=== PATIENT | male | born 1980 | race Caucasian/White ===

== ENCOUNTER 2019-06-01 17:46 | Emergency (ER) | payer OTHER ==
[~2019-06-01] VITALS: Ht 165.1 cm; Wt 108.9 kg
[2019-06-01 18:05] LABS: BASO # 0.1 x10^3/uL (0.0-0.2); BASO % 1 % (0-3); EOS % 0 % (0-3); HEMATOCRIT 43.6 % (39.0-53.0); HEMOGLOBIN 14.5 g/dL (13.0-17.5); LYMPH # 3.5 x10^3/uL (1.0-4.8); LYMPH % 30 % (24-48); MEAN CORPUSCULAR HEMOGLOBIN 28 pg (25-35); MEAN CORPUSCULAR HGB CONC 33 g/dL (31-37); MEAN CORPUSCULAR VOLUME 84 fL (79-100); MONO # 0.7 x10^3/uL (0.0-1.1); MONO % 6 % (0-9); NEUT # 7.4 x10^3/uL (1.8-7.7); NEUT % 64 % (31-73); PLATELET COUNT 282 x10^3/uL (140-400); RED BLOOD COUNT 5.17 x10^6/uL (4.30-5.70); RED CELL DISTRIBUTION WIDTH 13.3 % (11.5-14.5); WHITE BLOOD COUNT 11.7 x10^3/uL (4.0-11.0)
--- NOTE | 2019-06-01 18:07 | PHYS DOC ---
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 Patient indicates that he was not actually trying to kill himself. Patient rates pain at an 8 out of 10. EMS reports that upon their arrival, patient had pulsatile flow from wounds and a tourniquet was placed. Patient denies loss of sensation distal to wound.[] (VIRGIL MELENDEZ Jr. DO) Review of Systems Review of Systems Constitutional: Denies fever or chills [] Respiratory: Denies cough or shortness of breath [] Cardiovascular: No additional information not addressed in HPI [] Musculoskeletal: Right arm pain [] Integument: Positive laceration to left antecubital space.[] Neurologic: Denies headache, focal weakness or sensory changes [] All other systems were reviewed and found to be within normal limits, except as documented in this note. (VIRGIL MELENDEZ Jr. DO) Current Medications Current Medications Current Medications Medications (Trade) Dose Ordered Sig/Adam Start Time Stop Time Status Last Admin Dose Admin Diphtheria/ Tetanus/Acell Pertussis (Boostrix) 0.5 ml ONCE ONCE 06/01/19 18:30 06/01/19 18:31 DC 06/01/19 18:24 0.5 ML Lidocaine/ Epinephrine (LIDOCAINE 1%-EPI 1:100,000 Multi-Dose) 20 ml 1X ONCE 06/01/19 18:30 06/01/19 18:31 DC 06/01/19 18:25 20 ML (JOVANNI FAJARDO APRN) Allergies Allergies Allergies Coded Allergies Type Severity Reaction Last Updated Verified Penicillins Allergy Unknown 06/01/19 Yes erythromycin base Allergy Unknown 06/01/19 Yes (JOVANNI FAJARDO APRN) Physical Exam Physical Exam Constitutional: Well developed, well nourished, no acute distress, non-toxic appearance. [] HENT: Normocephalic, atraumatic, bilateral external ears normal, oropharynx moist, no oral exudates, nose normal. [] Eyes: PERRLA, EOMI, conjunctiva normal, no discharge. [] Neck: Normal range of motion, no tenderness, supple. [] Cardiovascular: Regular rate and rhythm[] Lungs & Thorax: Bilateral breath sounds clear to auscultation [] Abdomen: Bowel sounds normal, soft, no tenderness. [] Skin: There is a 1.5 cm laceration noted to the antecubital space, midline, lateral to the brachial artery pulse. [] Extremities: Laceration as noted above. [] Neurologic: Alert and oriented X 3, no focal deficits noted. [] (VIRGIL MELENDEZ Jr. DO) Current Patient Data Vital Signs Vital Signs Date Time Temp Pulse Resp B/P (MAP) Pulse Ox O2 Delivery O2 Flow Rate FiO2 06/01/19 17:46 98.2 91 16 144/74 (97) 97 Room Air 98.2 (JOVANNI FAJARDO FAN BLADE ALIGNER) Lab Values Laboratory Tests Test 06/01/19 17:58 White Blood Count 11.7 x10^3/uL (4.0-11.0) H Red Blood Count 5.17 x10^6/uL (4.30-5.70) Hemoglobin 14.5 g/dL (13.0-17.5) Hematocrit 43.6 % (39.0-53.0) Mean Corpuscular Volume 84 fL (79-100) Mean Corpuscular Hemoglobin 28 pg (25-35) Mean Corpuscular Hemoglobin Concent 33 g/dL (31-37) Red Cell Distribution Width 13.3 % (11.5-14.5) Platelet Count 282 x10^3/uL (140-400) Neutrophils (%) (Auto) 64 % (31-73) Lymphocytes (%) (Auto) 30 % (24-48) Monocytes (%) (Auto) 6 % (0-9) Eosinophils (%) (Auto) 0 % (0-3) Basophils (%) (Auto) 1 % (0-3) Neutrophils # (Auto) 7.4 x10^3/uL (1.8-7.7) Lymphocytes # (Auto) 3.5 x10^3/uL (1.0-4.8) Monocytes # (Auto) 0.7 x10^3/uL (0.0-1.1) Eosinophils # (Auto) 0.0 x10^3/uL (0.0-0.7) Basophils # (Auto) 0.1 x10^3/uL (0.0-0.2) Sodium Level 141 mmol/L (136-145) Potassium Level 3.9 mmol/L (3.5-5.1) Chloride Level 105 mmol/L (98-107) Carbon Dioxide Level 26 mmol/L (21-32) Anion Gap 10 (6-14) Blood Urea Nitrogen 14 mg/dL (8-26) Creatinine 0.9 mg/dL (0.7-1.3) Estimated GFR (Cockcroft-Gault) 95.5 BUN/Creatinine Ratio 16 (6-20) Glucose Level 170 mg/dL (70-99) H Calcium Level 8.9 mg/dL (8.5-10.1) Total Bilirubin 0.6 mg/dL (0.2-1.0) Aspartate Amino Transferase (AST) 21 U/L (15-37) Alanine Aminotransferase (ALT) 27 U/L (16-63) Alkaline Phosphatase 61 U/L (46-116) Total Protein 7.6 g/dL (6.4-8.2) Albumin 3.6 g/dL (3.4-5.0) Albumin/Globulin Ratio 0.9 (1.0-1.7) L Ethyl Alcohol Level < 10 mg/dL (0-10) Laboratory Tests 06/01/19 17:58 Laboratory Tests 06/01/19 17:58 (JOVANNI FAJARDO APRN) Lab Values Laboratory Tests Test 06/01/19 17:58 White Blood Count 11.7 x10^3/uL (4.0-11.0) H Red Blood Count 5.17 x10^6/uL (4.30-5.70) Hemoglobin 14.5 g/dL (13.0-17.5) Hematocrit 43.6 % (39.0-53.0) Mean Corpuscular Volume 84 fL (79-100) Mean Corpuscular Hemoglobin 28 pg (25-35) Mean Corpuscular Hemoglobin Concent 33 g/dL (31-37) Red Cell Distribution Width 13.3 % (11.5-14.5) Platelet Count 282 x10^3/uL (140-400) Neutrophils (%) (Auto) 64 % (31-73) Lymphocytes (%) (Auto) 30 % (24-48) Monocytes (%) (Auto) 6 % (0-9) Eosinophils (%) (Auto) 0 % (0-3) Basophils (%) (Auto) 1 % (0-3) Neutrophils # (Auto) 7.4 x10^3/uL (1.8-7.7) Lymphocytes # (Auto) 3.5 x10^3/uL (1.0-4.8) Monocytes # (Auto) 0.7 x10^3/uL (0.0-1.1) Eosinophils # (Auto) 0.0 x10^3/uL (0.0-0.7) Basophils # (Auto) 0.1 x10^3/uL (0.0-0.2) Laboratory Tests 06/01/19 17:58 (VIRGIL MELENDEZ Jr., DO) EKG EKG [] (VIRGIL MELENDEZ Jr., DO) Radiology/Procedures Radiology/Procedures [] (VIRGIL MELENDEZ Jr., DO) Radiology/Procedures Laceration Repair by oh: Anesthesia: 1% lidocaine locally with 1% epi Location: RAC Tendon/Joint/Nerves: No injury Foreign body: None detected after copious irrigation and exploration Technique: 5 Simple Interrupted Sutures with 4-0 Ethilon, and Complexity: 1 running suture with 3 throws using 2-0 chromic gut for internal subcutaneous sutures Post Closure Length: 3 cm Patient's bleeding was easily controlled in the department and there is no indication of anemia. No evidence of compartment syndrome, neurologic injury, vascular injury, open joint, tendon laceration, or foreign body. Patient is appropriate for outpatient follow up. (JOVANNI FAJARDO APRN) Course & Med Decision Making Course & Med Decision Making Pertinent Labs and Imaging studies reviewed. (See chart for details) Tourniquet removed and rebleeding did occur; however, after approximately 10 minutes with direct pressure as held by Willis Fajardo, bleeding has stopped. I did discuss the case with Dr. Ball, on-call for vascular surgery, and he does not feel that this patient needs any vascular studies at this time. Nurse practitioner will be performing laceration repair. Patient has also been signed out to oncoming ER physician, Dr. Flowers. (VIRGIL MELENDEZ Jr., DO) Course & Med Decision Making Patient care transferred to [place] at 1800. Laceration was repaired by nurse practitioner without problem. Patient denies suicidal or homicidal ideation. Patient was evaluated by PAT team staff without having criteria for inpatient treatment for suicidal attempt. Patient was discharged to police custody. (CLARIBEL FLOWERS MD) Dragon Disclaimer Dragon Disclaimer This electronic medical record was generated, in whole or in part, using a voice recognition dictation system. (VIRGIL MELENDEZ Jr., DO) Departure Departure Impression: Primary Impression: Intentional self-harm by knife, initial encounter Additional Impression: Laceration of right forearm Disposition: HOME, SELF-CARE (police custody at 1947) Condition: IMPROVED Patient Instructions: Laceration Care, Adult, Suicidal Feelings, How to Help Yourself, Sutured Wound Care Additional Instructions: Keep wound clean and dry Follow-up with your primary care physician in 2-3 days Return to ER if not getting better Suture removal in 7-10 days Problem Qualifiers Additional Impression: Laceration of right forearm Encounter type: subsequent encounter Qualified Codes: S51.811D - Laceration without foreign body of right forearm, subsequent encounter VIRGIL MELENDEZ Jr., DO Jun 01, 2019 18:07 JOVANNI FAJARDO APRN Jun 01, 2019 18:42 CLARIBEL FLOWERS MD Jun 01, 2019 19:50
[2019-06-01 18:14] LABS: CALCIUM 8.9 mg/dL (8.5-10.1); CREATININE 0.9 mg/dL (0.7-1.3); GFR 95.5; POTASSIUM 3.9 mmol/L (3.5-5.1)
[2019-06-01 18:20] LABS: ALBUMIN 3.6 g/dL (3.4-5.0); ALBUMIN/GLOBULIN RATIO 0.9 (1.0-1.7); TOTAL BILIRUBIN 0.6 mg/dL (0.2-1.0); TOTAL PROTEIN 7.6 g/dL (6.4-8.2)
[2019-06-01] MEDS ORDERED: LIDOCAINE 1%/EPI 1:100,000 20 ML VIAL. SQ ONE (18:30)
[2019-06-01] MEDS ORDERED: DIPHTH,PERTUSS(ACELL),TET TOX 0.5 ML DISP.SYRIN. VAX IM ONE (18:30)
[2019-06-01] MEDS ORDERED: ACETAMINOPHEN 500 MG TABLET PO ONE (20:00)
[2019-06-01 20:15] VITALS: BP 152/95
== END 2019-06-01 20:21 | disposition home or self-care (01) ==
LOC: ER 17:46
DX: S51.811A Laceration without foreign body of right forearm, initial encounter (principal); X78.1XXA Intentional self-harm by knife, initial encounter; Y93.89 Activity, other specified; Y92.89 Other specified places as the place of occurrence of the external cause; Y99.8 Other external cause status
CPT/HCPCS: 12002; 36415; 80053; 85025; 90471; 90715; 99284; G0480; J3490; 99283

== ENCOUNTER 2019-06-02 19:35 | Emergency (ER) | payer OTHER ==
[~2019-06-02] VITALS: Ht 165.1 cm; Wt 108.9 kg
[2019-06-02] MEDS ORDERED: NEOMY/BACITR/POLYMYXIN OINT PACKET. TP ONE (19:45)
[2019-06-02] MEDS ORDERED: LIDOCAINE 2%/EPI 1:100,000 20 ML VIAL. IJ ONE (19:45)
[2019-06-02] MEDS ORDERED: LIDOCAINE 1%/EPI 1:100,000 20 ML VIAL. ONE (20:06)
--- NOTE | 2019-06-02 20:40 | PHYS DOC ---
Past Medical History Past Medical History: Diabetes-Type II, GERD, High Cholesterol, Hypertension, Hypothyroid Additional Past Medical Histor: personality disorder, schizoaffective disorder Past Surgical History: Cholecystectomy Additional Past Surgical Histo: inguinal hernia Additional Information: Nonsmoker Alcohol Use: None Drug Use: None Adult General Chief Complaint Chief Complaint: SUICDAL IDEATION HPI HPI 38-year-old male presents with report of laceration to his left AC area which occurred while patient was [facility]. Patient not forthcoming in regards to how he was able to obtain sharp object, however does report did attempt suicidality. Reports in case depression. Reports he does not like his current circumstances. Patient was seen yesterday for a laceration to the right arm. EMS concern for possible vascular injury as wound had continued to bleed despite use of pressure dressing. Patient denies use of blood thinners. EMS concerned with loss of approximate "400-500 ML's". Tetanus up to date. Review of Systems Review of Systems Constitutional: Denies fever or chills Eyes: Denies redness or eye pain HENT: Denies nasal congestion or sore throat Respiratory: Denies cough or shortness of breath Cardiovascular: Denies chest pain or palpitations GI: Denies abdominal pain, nausea, or vomiting : Denies dysuria or hematuria Musculoskeletal: Denies back pain or joint pain Integument: Reports laceration to left AC area Neurologic: Denies headache, focal weakness or sensory changes Psychiatric: Reports suicidality Complete systems were reviewed and found to be within normal limits, except as documented in this note. Current Medications Current Medications Current Medications Medications (Trade) Dose Ordered Sig/[facility] Start Time Stop Time Status Last Admin Dose Admin Lidocaine/ Epinephrine (LIDOCAINE 1%-EPI 1:100,000 Multi-Dose) 20 ml 1X ONCE 06/02/19 21:30 06/02/19 21:31 Lidocaine/ Epinephrine (LIDOCAINE 2%-EPI 1:100,000 multi-dose) 20 ml 1X ONCE 06/02/19 19:45 06/02/19 19:46 Cancel Neomycin/ Polymyxin/ Bacitracin (Triple Antibiotic Ointment) 1 pkt 1X ONCE 06/02/19 19:45 06/02/19 19:47 DC 06/02/19 20:30 1 PKT Allergies Allergies Allergies Coded Allergies Type Severity Reaction Last Updated Verified Penicillins Allergy Intermediate 06/02/19 Yes erythromycin base Allergy Intermediate 06/02/19 Yes Physical Exam Physical Exam Constitutional: Well developed, well nourished, no acute distress, non-toxic appearance HENT: Normocephalic, atraumatic, oropharynx moist Eyes: Conjunctiva normal, no discharge Neck: Normal range of motion, no tenderness, supple Cardiovascular: Left radial pulse +2, CR < 2 sec Lungs & Thorax: NO respiratory distress, atraumatic Abdomen: Soft, no tenderness Skin: Warm, dry, no erythema, 5 cm laceration to left AC Extremities: No tenderness, ROM intact, no edema, Neurologic: Alert and oriented X 3, normal motor function, normal sensory function, no focal deficits noted Psychologic: Affect flat, judgement abnormal Current Patient Data Vital Signs Vital Signs Date Time Temp Pulse Resp B/P (MAP) Pulse Ox O2 Delivery O2 Flow Rate FiO2 06/02/19 19:40 98.3 112 16 160/93 (115) 93 Room Air 98.3 Lab Values Laboratory Tests Test 06/02/19 20:40 White Blood Count 9.6 x10^3/uL (4.0-11.0) Red Blood Count 4.99 x10^6/uL (4.30-5.70) Hemoglobin 14.2 g/dL (13.0-17.5) Hematocrit 42.4 % (39.0-53.0) Mean Corpuscular Volume 85 fL (79-100) Mean Corpuscular Hemoglobin 28 pg (25-35) Mean Corpuscular Hemoglobin Concent 33 g/dL (31-37) Red Cell Distribution Width 13.3 % (11.5-14.5) Platelet Count 220 x10^3/uL (140-400) Neutrophils (%) (Auto) 73 % (31-73) Lymphocytes (%) (Auto) 20 % (24-48) L Monocytes (%) (Auto) 5 % (0-9) Eosinophils (%) (Auto) 1 % (0-3) Basophils (%) (Auto) 0 % (0-3) Neutrophils # (Auto) 7.0 x10^3/uL (1.8-7.7) Lymphocytes # (Auto) 2.0 x10^3/uL (1.0-4.8) Monocytes # (Auto) 0.5 x10^3/uL (0.0-1.1) Eosinophils # (Auto) 0.0 x10^3/uL (0.0-0.7) Basophils # (Auto) 0.0 x10^3/uL (0.0-0.2) Prothrombin Time 13.7 SEC (11.7-14.0) Prothrombin Time INR 1.1 (0.8-1.1) Activated Partial Thromboplast Time 29 SEC (24-38) Sodium Level 140 mmol/L (136-145) Potassium Level 4.5 mmol/L (3.5-5.1) Chloride Level 103 mmol/L (98-107) Carbon Dioxide Level 25 mmol/L (21-32) Anion Gap 12 (6-14) Blood Urea Nitrogen 12 mg/dL (8-26) Creatinine 0.8 mg/dL (0.7-1.3) Estimated GFR (Cockcroft-Gault) 109.4 BUN/Creatinine Ratio 15 (6-20) Glucose Level 295 mg/dL (70-99) H Calcium Level 9.0 mg/dL (8.5-10.1) Magnesium Level Pending Total Bilirubin Pending Aspartate Amino Transferase (AST) Pending Alanine Aminotransferase (ALT) Pending Alkaline Phosphatase Pending Total Protein Pending Albumin Pending Albumin/Globulin Ratio Pending Salicylates Level < 2.8 mg/dL (2.8-20.0) L Salicylate Last Dose Date Salicylate Last Dose Time Acetaminophen Level < 2 mcg/ml (10-30) L Acetaminophen Last Dose Date Acetaminophen Last Dose Time Ethyl Alcohol Level < 10 mg/dL (0-10) Laboratory Tests 06/02/19 20:40 Laboratory Tests 06/02/19 20:40 EKG EKG [] Radiology/Procedures Radiology/Procedures [] Course & Med Decision Making Course & Med Decision Making Pertinent Lab studies reviewed. (See chart for details) Patient presents from [facility] as inmate who had deliberately cut his left AC. Reports suicidality. Reports of possible loss of 400-500mls of blood. NO active bleeding upon arrival. Subcunateous tissue noted. No vascular injury identified. Distal pulse intact. Labs obtained and posted to chart. Wound cleaned, repaired, and dressed. Patient to received psychiatric services at correctional facility. Patient stable for discharge in custody back to [facility]. Discussed findings and plan with patient, who acknowledges understanding and agreement. Dragon Disclaimer Dragon Disclaimer This electronic medical record was generated, in whole or in part, using a voice recognition dictation system. Laceration/Wound Repair Laceration/Wound Repair : Wound Location: upper extremity (left AC) Wound's Depth, Shape: linear (into subcutaneous fat) Wound Length (cm): 5 Wound Explored: clean Irrigated w/ Saline (ccs): 200 Anesthesia: 1% Lidocaine (with epi) Volume Anesthetic (ccs): 8 Wound Debrided: minimal Wound Repaired With: sutures Suture Size/Type: 3:0, nylon Number of Sutures: 8 Layer Closure?: Yes Deep Layer Suture Size/Type: 4:0 (Vicryl) Number Deep Layer Sutures: 2 Sterile Dressing Applied?: Yes Progress Verbal consent obtained. Time out performed. Hand hygiene utilized. Wound cleaned with ChloraPrep. No significant active bleeding noted. Anesthesia obt ained via a 25-gauge hypodermic needle with (8) mL's of lidocaine 1% with epinephrine. Wound explored. No retained foreign body noted. Copious irrigation performed. Wound well approximated with simple interrupted 3-0 Nylon x 8 and 4- 0 Nylon x 2 for dermal layers and 4-0 Vicryl x 2 subcutaneous sutures . Patient tolerated procedure well and without difficulty. Empiric antibiotic ointment applied prior to sterile dressing. Departure Departure Impression: Primary Impression: Suicidal ideation Additional Impressions: Deliberate self-cutting Laceration Disposition: HOME, SELF[facility]CARE [facility] Condition: GUARDED Referrals: NO PCP (PCP) Patient Instructions: Laceration Care, Adult, [id number], Suicidal Feelings, How to Help Yourself Additional Instructions: Do not soak your wound. You may shower. Clean wound daily with soap and water. Change dressing 2 times daily. Use over the counter antibiotic ointment with each dressing change. Sutures need to be removed in 7-10 days. Present to your family doctor or local urgent care for removal. You may also present to the ED but it will be an additional visit/charge. After suture removal you may use Vitamin E ointment to soften the wound and prevent scarring. Problem Qualifiers RACHEL PITTMAN DO Jun 02, 2019 20:40
[2019-06-02 20:56] LABS: BASO % 0 % (0-3); EOS % 1 % (0-3); HEMATOCRIT 42.4 % (39.0-53.0); HEMOGLOBIN 14.2 g/dL (13.0-17.5); LYMPH % 20 % (24-48); MEAN CORPUSCULAR HEMOGLOBIN 28 pg (25-35); MEAN CORPUSCULAR HGB CONC 33 g/dL (31-37); MEAN CORPUSCULAR VOLUME 85 fL (79-100); MONO # 0.5 x10^3/uL (0.0-1.1); MONO % 5 % (0-9); NEUT % 73 % (31-73); PLATELET COUNT 220 x10^3/uL (140-400); RED BLOOD COUNT 4.99 x10^6/uL (4.30-5.70); RED CELL DISTRIBUTION WIDTH 13.3 % (11.5-14.5); WHITE BLOOD COUNT 9.6 x10^3/uL (4.0-11.0)
[2019-06-02 21:00] VITALS: BP 159/98
[2019-06-02 21:03] LABS: PROTHROMBIN TIME PATIENT 13.7 SEC (11.7-14.0)
[2019-06-02 21:05] LABS: CREATININE 0.8 mg/dL (0.7-1.3); GFR 109.4; POTASSIUM 4.5 mmol/L (3.5-5.1)
[2019-06-02 21:09] LABS: BILIRUBIN,URINE NEGATIVE (NEG); CLARITY,URINE CLEAR; COLOR,URINE YELLOW; NITRITE,URINE NEGATIVE (NEG); PH,URINE 6.5; PROTEIN,URINE NEGATIVE (NEG-TRACE)
[2019-06-02 21:10] LABS: ACETAMIN < 2 mcg/ml (10-30); SALIC < 2.8 mg/dL (2.8-20.0)
[2019-06-02 21:12] LABS: ALBUMIN 3.6 g/dL (3.4-5.0); ALBUMIN/GLOBULIN RATIO 0.9 (1.0-1.7); MAGNESIUM 1.8 mg/dL (1.8-2.4); TOTAL BILIRUBIN 0.4 mg/dL (0.2-1.0); TOTAL PROTEIN 7.5 g/dL (6.4-8.2)
[2019-06-02 21:14] LABS: BACTERIA,URINE 0 /HPF (0-FEW); RBC,URINE 0 /HPF (0-2); WBC,URINE 0 /HPF (0-4)
[2019-06-02] MEDS ORDERED: LIDOCAINE 1%/EPI 1:100,000 20 ML VIAL. INJ ONE (21:30)
== END 2019-06-02 21:19 | disposition home or self-care (01) ==
LOC: EEVIPCON 19:35 → ER 19:35
DX: S41.112A Laceration without foreign body of left upper arm, initial encounter (principal); R45.851 Suicidal ideations; E11.9 Type 2 diabetes mellitus without complications; K21.9 Gastro-esophageal reflux disease without esophagitis; E78.00 Pure hypercholesterolemia, unspecified; I10 Essential (primary) hypertension; E03.9 Hypothyroidism, unspecified; Z90.49 Acquired absence of other specified parts of digestive tract; Z88.0 Allergy status to penicillin; Z88.1 Allergy status to other antibiotic agents; X78.8XXA Intentional self-harm by other sharp object, initial encounter; Y93.89 Activity, other specified; Y92.89 Other specified places as the place of occurrence of the external cause; Y99.8 Other external cause status
CPT/HCPCS: 12032; 36415; 80053; 80329; 81001; 83735; 85025; 85610; 85730; 99284; G0480; J3490